=== PATIENT | female | born 1950 | race Caucasian/White ===

== ENCOUNTER 2018-08-11 00:08 | Emergency (ER) | payer MEDICARE, BC ==
[~2018-08-11] VITALS: Ht 167.6 cm; Wt 72.6 kg
== END 2018-08-11 01:04 | disposition home or self-care (01) ==
LOC: ER 00:08
DX: H66.011 Acute suppurative otitis media with spontaneous rupture of ear drum, right ear (principal)
CPT/HCPCS: 99282

== ENCOUNTER 2018-11-21 16:27 | Inpatient (IN) | payer MEDICARE, BC ==
[~2018-11-21] VITALS: Ht 165.1 cm; Wt 72.6 kg
[2018-11-21 18:12] LABS: BASOPHILS # (AUTO) 0.1 (0.0-0.1); BASOPHILS % 0.4 % (0.0-1.0); EOSINOPHILS # (AUTO) 0.1 (0.0-0.4); EOSINOPHILS % 0.5 % (0.0-6.0); HEMATOCRIT 47.7 % (34.2-44.1); HEMOGLOBIN 16.8 g/dL (12.0-16.0); LYMPHOCYTES # (AUTO) 1.1 (1.0-3.2); LYMPHOCYTES % 7.9 % (18.0-39.1); MEAN CORPUSCULAR HEMOGLOBIN 33.4 pg (28-32); MEAN CORPUSCULAR HGB CONC 35.2 g/dL (31-35); MEAN CORPUSCULAR VOLUME 94.8 fL (81-99); MONOCYTES # (AUTO) 0.6 (0.2-0.8); MONOCYTES % 4.1 % (4.4-11.3); NEUTROPHILS # (AUTO) 12.1 (2.1-6.9); NEUTROPHILS % 86.5 % (38.7-80.0); PLATELET COUNT 318 x10e3/uL (140-360); RED BLOOD COUNT 5.03 x10e6/uL (3.6-5.1); RED CELL DISTRIBUTION WIDTH 12.2 % (11.7-14.4)
[2018-11-21 18:19] LABS: MAGNESIUM 1.9 MG/DL (1.3-2.1)
[2018-11-21] MEDS: SODIUM CHLORIDE 0.9% 1000ML 1,000 ML IV SCH ×3 (18:23→21:50)
--- NOTE | 2018-11-21 18:25 | NUR ---
PATIENT VOMMITED 250ML CLEAR YELLOW EMESIS. CLEAN EMESIS BAG PROVIDED, WASHCLOTH PROVIDED. NO SIGNS OF ACUTE DISTRESS NOTED AT THIS TIME.
[2018-11-21 18:28] LABS: ALANINE AMINOTRANSFERASE 38 IU/L (0-55); ALBUMIN 4.7 g/dL (3.5-5.0); ALBUMIN/GLOBULIN RATIO 1.1 (0.8-2.0); ALKALINE PHOSPHATASE 95 IU/L (40-150); ANION GAP 20.8 mmol/L (8-16); BLOOD UREA NITROGEN 34 mg/dL (7-26); BUN/CREATININE RATIO 16 (6-25); CALCIUM 10.6 mg/dL (8.4-10.2); CARBON DIOXIDE 18 mmol/L (22-29); CHLORIDE 105 mmol/L (98-107); CREATININE, SERUM 2.11 mg/dL (0.57-1.11); EST GLOMERULAR FILTRATION RATE 23 ML/MIN (60-); GLUCOSE 203 mg/dL (74-118); POTASSIUM 4.8 mmol/L (3.5-5.1); SODIUM 139 mmol/L (136-145)
--- NOTE | 2018-11-21 18:45 | NUR ---
VERBAL REPORT GIVEN TO CLINT MURCIA.
[2018-11-21] MEDS ORDERED: DIATRIZOATE MEGL/DIATRIZOA SOD 30 ML BTL PO ONE (18:46)
[2018-11-21 19:17] LABS: BILIRUBIN,URINE NEGATIVE (NEGATIVE); CLARITY,URINE SL CLOUDY (CLEAR); COLOR,URINE YELLOW (YELLOW); KETONES,URINE NEGATIVE (NEGATIVE); LEUKOCYTE ESTERASE ,URINE TRACE (NEGATIVE); NITRITE,URINE NEGATIVE (NEGATIVE); PROTEIN,URINE DIPSTICK NEGATIVE (NEGATIVE); URINE UROBILINOGEN 0.2 mg/dL (0.2 - 1)
[2018-11-21 19:25] LABS: AMORPHOUS SEDIMENT,URINE MANY (FEW); BACTERIA,URINE MANY /HPF
[2018-11-21] MEDS ORDERED: SODIUM CHLORIDE 0.9% 1000ML 1,000 ML IV SCH (19:30)
[2018-11-21] MEDS ORDERED: ULTRAM 50MG50 MG PO (19:43)
[2018-11-21] MEDS ORDERED: ZOLPIDEM TARTRA10 MG PO (19:43)
[2018-11-21] MEDS ORDERED: GLIMEPIRIDE2 MG PO (19:43)
[2018-11-21] MEDS ORDERED: METFORMIN HCL500 M2 PO (19:43)
[2018-11-21] MEDS ORDERED: VITAMIN D32000 UNI1 PO (19:43)
[2018-11-21] MEDS ORDERED: PANTOPRAZOLE SO40 MG PO (19:43)
[2018-11-21] MEDS ORDERED: ACEBUTOLOL HCL200 MG PO (19:43)
[2018-11-21] MEDS ORDERED: PIOGLITAZONE HC45 MG PO (19:43)
[2018-11-21] MEDS ORDERED: VITAMIN C1000 M2 PO (19:43)
[2018-11-21] MEDS ORDERED: CYCLOBENZAPRINE10 MG PO (19:43)
[2018-11-21] MEDS ORDERED: AMLODIPINE BESYL5 MG PO (19:43)
[2018-11-21] MEDS ORDERED: MOBIC7.5 MG PO (19:43)
[2018-11-21] MEDS ORDERED: LEVOTHYROXINE50 MCG PO (19:43)
[2018-11-21] MEDS ORDERED: LOSARTAN-HCTZ1 EAC2 PO (19:43)
[2018-11-21] MEDS ORDERED: CRESTOR10 MG PO (19:43)
[2018-11-21] MEDS ORDERED: CYMBALTA30 MG PO (19:43)
[2018-11-21] MEDS ORDERED: FISH OIL 1,0001 EAC3 PO (19:43)
[2018-11-21] MEDS ORDERED: ONDANSETRON HCL INJ 2MG/ML 2ML 2 MG/ML VIAL IV STA (20:08)
--- NOTE | 2018-11-21 20:18 | Diagnostic Imaging Report ---
EXAMINATION: CT of the abdomen and pelvis without contrast. TECHNIQUE: Spiral CT images of the abdomen and pelvis were performed from the lung bases to the lesser trochanters. Coronal and sagittal reformatted images were obtained. Positive oral contrast was administered. COMPARISON: None CLINICAL HISTORY:Acute onset abdominal pain DISCUSSION: ABDOMEN/PELVIS: LOWER THORAX: Lung bases are clear. Few punctate coronary calcifications. HEPATOBILIARY: Mildly lobulated liver contour. No focal hepatic lesions. No intra or extrahepatic biliary ductal dilation. Nonspecific surgical clip within Morison's pouch. GALLBLADDER: There are cholecystectomy clips. SPLEEN: No splenomegaly. PANCREAS: No focal masses or ductal dilatation. ADRENALS: No adrenal nodules. KIDNEYS/URETERS: Oral and small kidneys with suspected focal scarring in the left inferior pole. No hydronephrosis, stones, or solid mass lesions. PELVIC ORGANS/BLADDER: Status post hysterectomy. Urinary bladder is collapsed which limits its evaluation. PERITONEUM/RETROPERITONEUM: No free air or fluid. Val mesentery, predominately about the proximal superior mesenteric artery, with scattered prominent mesenteric nodes throughout the abdomen. LYMPH NODES: See above. VESSELS: Grossly unremarkable. GI TRACT: No distention or wall thickening. The appendix is difficult to definitively identify but is likely anterior projecting off the cecum as annotated (series 2, image 53). Few sigmoid diverticuli without evidence of diverticulitis. BONES AND SOFT TISSUES: Midline vertical laparotomy scar. Degenerative changes of the lumbar spine. IMPRESSION: Val mesentery with scattered prominent mesenteric nodes throughout the abdomen; findings are non-specific and can be seen in the setting of infectious/inflammatory (i.e. panniculitis) versus more sinister etiologies (i.E. lymphoma). Recommend short-term follow-up exam to evaluate for resolution. Additional findings: Scarring in the left inferior renal pole, few sigmoid diverticuli without evidence of diverticulitis, slightly lobulated liver contour may represent early hepatic cirrhosis. Signed by: Darnell Means MD on 11/21/2018 8:14 PM
[2018-11-21] MEDS ORDERED: CYCLOBENZAPRINE HCL 10 MG TAB PO PRN (21:30)
[2018-11-21] MEDS ORDERED: DEXTROSE 50% SYRINGE 50 ML IV PRN (21:30)
[2018-11-21] MEDS ORDERED: ZOLPIDEM TARTRATE 10 MG TAB PO PRN (21:30)
[2018-11-21] MEDS ORDERED: ONDANSETRON HCL INJ 2MG/ML 2ML 2 MG/ML VIAL IV PRN (21:30)
[2018-11-21] MEDS ORDERED: NON-FORMULARY MEDICATION (Zolpidem Tartrate 10 MG) PO PRN (21:30)
[2018-11-21] MEDS ORDERED: TRAMADOL HCL 50 MG TAB PO PRN (21:30)
--- OUTSIDE RECORDS SUMMARY | 2018-11-21 22:07 | XMS REPORT ---
[facility] Address Unknown Phone Unavailable Care Team Providers Care Press Offbearer Name Role Phone Stefanie TURNER Unavailable Unavailable Problems This patient has no known problems. Allergies, Adverse Reactions, Alerts This patient has no known allergies or adverse reactions. Medications This patient has no known medications. Results Test Description Test Time Test Comments Text Results Atomic Results Result Comments CT ABDOMEN/PELVIS WO 2018-11-21 19:54:00 [place] [address] Patient Name: AFUA VELASQUEZ MR #: [id number] : 1950 Age/Sex: 68/F Req #: [id number] Adm Physician: Ordered by: SNEHAL TURNER MD Report #: [id number] Location: ER Room/Bed: Procedure: [id number] CT/CT ABDOMEN/PELVIS WO Exam Date: 11/21/18 Exam Time: 0 REPORT STATUS: Signed EXAMINATION: CT of the abdomen and pelvis without contrast. TECHNIQUE: Spiral CT images of the abdomen and pelvis were performed from the lung bases to the lesser trochanters. Coronal and sagittal reformatted images were obtained. Positive oral contrast was administered. COMPARISON: None CLINICAL HISTORY:Acute onset abdominal pain DISCUSSION: ABDOMEN/PELVIS: LOWER THORAX: Lung bases are clear. Few punctate coronary calcifications. HEPATOBILIARY: Mildly lobulated liver contour. No focal hepatic lesions. No intra or extrahepatic biliary ductal dilation. Nonspecific surgical clip within Morison's pouch. GALLBLADDER: There are cholecystectomy clips. SPLEEN: No splenomegaly. PANCREAS: No focal masses or ductal dilatation. ADRENALS: No adrenal nodules. KIDNEYS/URETERS: Oral and small kidneys with suspected focal scarring in the left inferior pole. No hydronephrosis, stones, or solid mass lesions. PELVIC ORGANS/BLADDER: Status post hysterectomy. Urinary bladder is collapsed which limits its evaluation. PERITONEUM/RETROPERITONEUM: No free air or fluid. Val mesentery, predominately about the proximal superior mesenteric artery, with scattered prominent mesenteric nodes throughout the abdomen. LYMPH NODES: See above. VESSELS: Grossly unremarkable. GI TRACT: No distention or wall thickening. The appendix is difficult to definitively i dentify but is likely anterior projecting off the cecum as annotated (series 2, image 53). Few sigmoid diverticuli without evidence of diverticulitis. BONES AND SOFT TISSUES: Midline vertical laparotomy scar. Degenerative changes of the lumbar spine. IMPRESSION: Val mesentery with scattered prominent mesenteric nodes throughout the abdomen; findings are non-specific and can be seen in the setting of infectious/inflammatory (i.e. panniculitis) versus more sinister etiologies (i.E. lymphoma). Recommend short-term follow- up exam to evaluate for resolution. Additional findings: Scarring in the left inferior renal pole, few sigmoid diverticuli without evidence of diverticulitis, slightly lobulated liver contour may represent early hepatic cirrhosis. Signed by: Carlo Cook MD on 11/21/2018 8:14 PM Dictated By: CARLO COOK MD 13 Transcribed By: INOCENCIO on 11/21/182013 COPY TO: SNHEAL TURNER MD
[2018-11-21 23:42] VITALS: BP 121/67
[2018-11-22] VITALS (8 sets, daily range): BP systolic 98–117; BP diastolic 55–87
[2018-11-22] MEDS: SODIUM CHLORIDE 0.9% 1000ML 1,000 ML IV SCH ×3 (03:31→20:44)
[2018-11-22] MEDS: LEVOTHYROXINE SODIUM 25 MCG TABLET PO SCH (06:00)
[2018-11-22] MEDS: PANTOPRAZOLE SOD 40 MG TABEC PO SCH (07:30)
[2018-11-22] MEDS: INSULIN REGULAR, HUMAN 100 UNIT/1 ML 3ML VIAL SQ SCH ×4 (07:30→20:40)
[2018-11-22 07:38] LABS: BASOPHILS % 0.4 % (0.0-1.0); EOSINOPHILS # (AUTO) 0.1 (0.0-0.4); EOSINOPHILS % 1.1 % (0.0-6.0); HEMATOCRIT 35.5 % (34.2-44.1); HEMOGLOBIN 11.9 g/dL (12.0-16.0); LYMPHOCYTES # (AUTO) 1.1 (1.0-3.2); LYMPHOCYTES % 24.1 % (18.0-39.1); MEAN CORPUSCULAR HGB CONC 33.5 g/dL (31-35); MEAN CORPUSCULAR VOLUME 98.3 fL (81-99); MONOCYTES # (AUTO) 0.2 (0.2-0.8); MONOCYTES % 4.4 % (4.4-11.3); NEUTROPHILS # (AUTO) 3.2 (2.1-6.9); NEUTROPHILS % 69.6 % (38.7-80.0); PLATELET COUNT 159 x10e3/uL (140-360); RED BLOOD COUNT 3.61 x10e6/uL (3.6-5.1); RED CELL DISTRIBUTION WIDTH 12.6 % (11.7-14.4)
[2018-11-22 08:01] LABS: ALBUMIN/GLOBULIN RATIO 1.2 (0.8-2.0); ANION GAP 13.1 mmol/L (8-16); CALCIUM 7.7 mg/dL (8.4-10.2); CREATININE, SERUM 1.45 mg/dL (0.57-1.11); POTASSIUM 4.1 mmol/L (3.5-5.1)
[2018-11-22] MEDS ORDERED: PIOGLITAZONE HCL 45 MG TAB PO SCH (09:00)
[2018-11-22] MEDS: DULOXETINE HCL 30 MG DELAYED RELEASE PO SCH ×2 (09:00→17:00)
[2018-11-22] MEDS ORDERED: NON-FORMULARY MEDICATION (Ascorbic Acid (Vitamin C) 1,000 MG) PO SCH (09:00)
[2018-11-22] MEDS: ASCORBIC ACID 500 MG TAB PO SCH (09:00)
[2018-11-22] MEDS: MELOXICAM 7.5 MG TAB PO SCH (09:00)
[2018-11-22] MEDS: AMLODIPINE BESYLATE 5 MG TAB PO SCH (09:00)
[2018-11-22] MEDS ORDERED: SIMVASTATIN 40 MG TAB PO SCH (09:00)
[2018-11-22] MEDS: CHOLECALCIFEROL 1,000 UNIT TAB PO SCH (09:00)
[2018-11-22] MEDS ORDERED: NON-FORMULARY MEDICATION (Cholecalciferol (Vitamin D3) (Vitamin D3) 2,000 INTLU) PO SCH (09:00)
[2018-11-22] MEDS ORDERED: LEVOTHYROXINE SODIUM 50 MCG TAB PO SCH (09:00)
[2018-11-22] MEDS: ACEBUTOLOL HCL 200 MG CAP PO SCH ×2 (09:00→17:00)
[2018-11-22] MEDS: PIOGLITAZONE HCL 15 MG TAB PO SCH (09:00)
[2018-11-22] MEDS ORDERED: ONDANSETRON HCL 4 MG ORAL DISINTEGRATING TAB PO PRN (10:30)
--- NOTE | 2018-11-22 16:05 | NUR ---
Visit made by the Spiritual Care Department Pastoral Visitor, Madeleine Farley. PV provided pastoral presence, prayer, hospitality, and supportive listening. Pastoral Visitor informed pt/family of the scope of Community Case Manager Services and availability. CHANO SALOMON Clinical Support Associate Spiritual Care Department O: [phone] Pager: [phone] ([phone] number calling from)
--- NOTE | 2018-11-22 17:32 | NUR ---
pt alert and asymptomatic, pt B/S 58, 1/2 amp of daniel
--- NOTE | 2018-11-22 17:38 | NUR ---
Pt B/S 58 at this time and is asymptomatic, pt given 1/2 amp of D50 iv , pt tolerated well. will cont to monitor.
--- NOTE | 2018-11-22 18:50 | NUR ---
Pt stool sample sent to lab.
--- NOTE | 2018-11-22 19:15 | NUR ---
RECEIVED REPORT FROM OFFGOING NURSE TABBY.WALKING ROUNDS MADE.PT RESTING IN BED WITH NO S/S OF DISTRESS.RESPIRATIONS EVEN/NON LABORED.PT REQUESTING SHOWER AT THIS TIME.NOTIFIED PT THAT SOON VITAL SIGNS ARE TAKEN WE WILL ASSIST PT TO SHOWER.NOTIFIED [facility] ABOUT PT REQUEST TO SHOWER.PT VERBALIZED UNDERSTANDING.BED IN LOWEST/LOCKED POSITION.CALL LIGHT WITHIN EASY REACH.
--- NOTE | 2018-11-22 19:40 | NUR ---
ASSISTED PT TO SHOWER AT THIS TIME WITH THE HELP OF MAYITO BREWER.
[2018-11-22] MEDS: SIMVASTATIN 20 MG TAB PO SCH (20:43)
[2018-11-23] VITALS (8 sets, daily range): BP systolic 120–152; BP diastolic 63–85
[2018-11-23] MEDS: SODIUM CHLORIDE 0.9% 1000ML 1,000 ML IV SCH ×3 (05:18→21:18)
[2018-11-23] MEDS: LEVOTHYROXINE SODIUM 25 MCG TABLET PO SCH (06:00)
--- NOTE | 2018-11-23 07:15 | NUR ---
REPORT GIVEN TO ONCOMING NURSE.WALKING ROUNDS MADE.PT RESTING IN BED WITH NO S/S OF DISTRESS.
[2018-11-23] MEDS: INSULIN REGULAR, HUMAN 100 UNIT/1 ML 3ML VIAL SQ SCH ×4 (07:30→21:00)
[2018-11-23] MEDS: PANTOPRAZOLE SOD 40 MG TABEC PO SCH (07:30)
[2018-11-23] MEDS: ACEBUTOLOL HCL 200 MG CAP PO SCH ×2 (07:36→16:28)
[2018-11-23] MEDS: DULOXETINE HCL 30 MG DELAYED RELEASE PO SCH ×2 (07:36→16:28)
[2018-11-23] MEDS: MELOXICAM 7.5 MG TAB PO SCH (07:36)
[2018-11-23] MEDS: AMLODIPINE BESYLATE 5 MG TAB PO SCH (07:36)
[2018-11-23] MEDS: PIOGLITAZONE HCL 15 MG TAB PO SCH (07:36)
[2018-11-23] MEDS: ASCORBIC ACID 500 MG TAB PO SCH (07:38)
[2018-11-23] MEDS: CHOLECALCIFEROL 1,000 UNIT TAB PO SCH (07:38)
--- NOTE | 2018-11-23 07:39 | NUR ---
The pt's spouse is here and reports that he has given the pt. all the meds she will need for the day and that her bedtime meds are labeled at bedside. The side rails are up times 3 and the pt. denies pain or discomfort.
--- NOTE | 2018-11-23 20:00 | NUR ---
Patient was instructed to have nothing by mouth after midnight. Expressed understanding.
[2018-11-23] MEDS: SIMVASTATIN 20 MG TAB PO SCH (20:50)
[2018-11-24] VITALS: BP 142/79
[2018-11-24] MEDS: LEVOTHYROXINE SODIUM 25 MCG TABLET PO SCH (05:02)
[2018-11-24 05:08] VITALS: BP 138/77
[2018-11-24] MEDS: SODIUM CHLORIDE 0.9% 1000ML 1,000 ML IV SCH (05:18)
[2018-11-24 05:44] LABS: BASOPHILS % 0.3 % (0.0-1.0); EOSINOPHILS # (AUTO) 0.1 (0.0-0.4); EOSINOPHILS % 1.3 % (0.0-6.0); HEMATOCRIT 32.8 % (34.2-44.1); HEMOGLOBIN 11.1 g/dL (12.0-16.0); LYMPHOCYTES # (AUTO) 1.3 (1.0-3.2); LYMPHOCYTES % 34.1 % (18.0-39.1); MEAN CORPUSCULAR HEMOGLOBIN 32.8 pg (28-32); MEAN CORPUSCULAR HGB CONC 33.8 g/dL (31-35); MONOCYTES # (AUTO) 0.3 (0.2-0.8); MONOCYTES % 8.3 % (4.4-11.3); NEUTROPHILS # (AUTO) 2.1 (2.1-6.9); NEUTROPHILS % 55.7 % (38.7-80.0); PLATELET COUNT 135 x10e3/uL (140-360); RED BLOOD COUNT 3.38 x10e6/uL (3.6-5.1); RED CELL DISTRIBUTION WIDTH 12.1 % (11.7-14.4)
[2018-11-24 06:00] LABS: ANION GAP 12.5 mmol/L (8-16); BLOOD UREA NITROGEN 12 mg/dL (7-26); BUN/CREATININE RATIO 15 (6-25); CALCIUM 8.4 mg/dL (8.4-10.2); CARBON DIOXIDE 20 mmol/L (22-29); CHLORIDE 113 mmol/L (98-107); EST GLOMERULAR FILTRATION RATE > 60 ML/MIN (60-); GLUCOSE 83 mg/dL (74-118); POTASSIUM 3.5 mmol/L (3.5-5.1); SODIUM 142 mmol/L (136-145)
[2018-11-24] MEDS: INSULIN REGULAR, HUMAN 100 UNIT/1 ML 3ML VIAL SQ SCH (07:30)
[2018-11-24] MEDS: PANTOPRAZOLE SOD 40 MG TABEC PO SCH (07:30)
--- NOTE | 2018-11-24 07:30 | NUR ---
The pt. is out of the room to radiology for Ct abd and pelvis. The pt's spouse is at the bedside.
[2018-11-24] MEDS: ACEBUTOLOL HCL 200 MG CAP PO SCH (08:11)
[2018-11-24] MEDS: MELOXICAM 7.5 MG TAB PO SCH (08:11)
[2018-11-24] MEDS: DULOXETINE HCL 30 MG DELAYED RELEASE PO SCH (08:11)
[2018-11-24] MEDS: PIOGLITAZONE HCL 15 MG TAB PO SCH (08:11)
[2018-11-24] MEDS: AMLODIPINE BESYLATE 5 MG TAB PO SCH (08:11)
[2018-11-24] MEDS: CHOLECALCIFEROL 1,000 UNIT TAB PO SCH (08:12)
[2018-11-24] MEDS: ASCORBIC ACID 500 MG TAB PO SCH (08:12)
--- NOTE | 2018-11-24 08:26 | Diagnostic Imaging Report ---
EXAMINATION: CT of the abdomen and pelvis with contrast COMPARISON: CT abdomen/pelvis 11/21/2018. CLINICAL HISTORY:Abdominal pain. TECHNIQUE: Spiral CT images of the abdomen and pelvis were performed from the lung bases to the lesser trochanters. Coronal and sagittal reformatted images were obtained. IV contrast was administered. IV CONTRAST: 100 cc of Isovue 370 RADIATION DOSE: Total DLP: 565.9 mGy*cm Dose modulation, iterative reconstruction, and/or weight based adjustment of the mA/kV was utilized to reduce the radiation dose to as low as reasonably achievable. DISCUSSION: LOWER THORAX: Interval development of trace right pleural effusion. Patchy bibasilar atelectasis. Scattered coronary atherosclerotic calcifications. HEPATOBILIARY: Mildly lobulated liver contour. Diffuse hepatic steatosis. No focal hepatic lesions. No biliary ductal dilatation. Status post cholecystectomy. Mild stranding at the cholecystectomy bed, likely postsurgical. Nonspecific surgical clip within Morison's pouch. SPLEEN: No splenomegaly. PANCREAS: No focal masses or ductal dilatation. ADRENALS: No adrenal nodules. KIDNEYS/URETERS: No hydronephrosis, stones, or solid mass lesions. Scarring in the left inferior pole. Subcentimeter lesion in the left kidney is too small to characterize, but likely represents a cyst. PELVIC ORGANS/BLADDER: Status post hysterectomy. The bladder appears unremarkable. PERITONEUM/RETROPERITONEUM: No free air or fluid. Mesenteric stranding, most pronounced adjacent to the superior mesenteric artery and in the right lower quadrant with scattered mildly enlarged mesenteric and pericecal lymph nodes, measuring up to 1 cm, for example on series 2, image 40. LYMPH NODES: As above. VESSELS: Replaced right hepatic artery. Scattered atherosclerotic calcifications. GI TRACT: No distention or wall thickening. The appendix is not clearly identified. Sigmoid diverticulosis without CT evidence of diverticulitis. BONES AND SOFT TISSUES: No acute osseous abnormality. No suspicious lytic or blastic lesions. IMPRESSION: Val mesentery with mild mesenteric lymphadenopathy, a nonspecific finding. Differential includes mesenteric panniculitis and lymphoma. Suggest follow-up CT in 3 months. Hepatic steatosis with possible early cirrhosis. Suggest correlation with labs. Interval development of trace right pleural effusion. Signed by: Dr. Felipa Liu MD on 11/24/2018 8:40 AM
[2018-11-24 08:28] VITALS: BP 165/79
[2018-11-24 08:30] VITALS: BP 165/79
[2018-11-24] MEDS ORDERED: IOPAMIDOL 370 MG/ML 200 ML INFUS..BTL INJ ONE ×2 (11:48→15:45)
[2018-11-24] MEDS ORDERED: SODIUM CHLORIDE 0.9% 50ML 0 ML ONE (11:48)
[2018-11-24 11:51] VITALS: BP 135/65
[2018-11-24] MEDS ORDERED: LEVAQUIN500 MG PO (11:57)
[2018-11-24] MEDS ORDERED: SODIUM CHLORIDE 0.9% 50ML 50 ML ONE (15:45)
--- NOTE | 2019-01-15 05:05 | Discharge Summary ---
CHIEF COMPLAINT: Abdominal pain. FINAL DIAGNOSES: Abdominal pain, resolved; nausea, vomiting, and diarrhea, resolved; diabetes type 2. DISPOSITION: Home. HOSPITAL COURSE: A 68-year-old female with known history of diabetes type 2, hyperlipidemia, and osteoarthritis, presents to the ER with generalized abdominal pain associated with nausea, vomiting, and diarrhea, but no fever or chills. Underwent review and evaluation in the emergency room. Studies were performed. CT scan of the abdomen was carried out. She was demonstrating diffuse tenderness of abdomen and she was admitted to the facility for care and evaluation regarding complaint of abdominal pain, acute gastroenteritis, rule out C difficile colitis, diabetes type 2. We will begin IV fluids. We will be checking stools for C difficile. Home medications will be continuing. She is on the Med-Surg floor. She was started on a clear liquid diet, still complaining of abdominal pain, but the nausea and vomiting have subsided. She was on IV fluids. She was receiving antibiotics. Her daily medications were continuing as well. She was placed on mild medication of tramadol. She is also continuing on her insulin coverage. Laboratory studies were being reviewed. She was beginning to feel better overall. Her care continued and her nausea and vomiting was resolving. Abdominal pain was resolving. Her diet was advanced. She was noted to be tolerating solid diet well. She is being cleared for discharge and she was stabilized. She was then able to be released on 11/24/2018 in good condition. IMAGING: Abdomen and pelvis CT shows radha mesentery with scattered prominent mesenteric nodes throughout the abdomen. Findings are nonspecific and can be seen in the setting of infectious/inflammatory process. Recommend followup study. Additional findings were few sigmoid diverticula without evidence of diverticulitis. Slightly lobulated liver contour may represent early hepatic cirrhosis. The pelvis CT was repeated 3 days later compared to the initial study. Findings continued to reveal radha mesentery with mild mesenteric lymphadenopathy and nonspecific finding. Differential includes mesenteric panniculitis and lymphoma. Suggest followup 3 months. Hepatic steatosis with possible early cirrhosis. Interval development of trace right pleural effusion. LABORATORY STUDIES: Begins with a CBC showing initial white cell count of 13,900, H and H were stable, platelets were stable. Followup white cell count shows a decline in the white cell count down to 3700, H and H declined as well, final study 11.1 and 32.8. Urinalysis showing many bacteria on the microscopic exam. Chemistries shows initial electrolytes to be stable. Kidney functions, BUN 34, creatinine 2.11, glucose 203. Followup chemistries continued to reveal stable electrolytes. Repeat BUN and creatinine of 37 and 1.45 respectively. Final glucose 193. Final electrolytes stable. Final kidney function stable. The patient was able to be discharged home in stable condition. She will be returning to primary care physician as directed within next 7-10 days. No equipments or supplies are necessary. No drains or Sandra was needed. Activity level as directed by myself. The patient will continue on acebutolol 200 mg p.o. b.i.d., amlodipine besylate 5 mg p.o. daily, vitamin C 1000 mg daily, vitamin D3 of 2000 unit capsule daily, cyclobenzaprine 10 mg daily, Cymbalta 60 mg p.o. b.i.d., glimepiride 4 mg p.o. b.i.d., Levaquin 500 mg p.o. daily, Levaquin sodium 25 mcg p.o. daily, losartan-hydrochlorothiazide 100 mg tablet one tablet p.o. daily, meloxicam 7.5 mg p.o. daily, metformin 500 mg p.o. b.i.d., omega-3 fatty acid 1000 mg softgel tablet two tablets p.o. HS, Protonix 40 mg daily, pioglitazone 15 mg p.o. daily, Crestor 10 mg to be taken half a tablet p.o. daily, tramadol 50 mg p.o. t.i.d., and zolpidem 10 mg p.o. h.s. p.r.n. for insomnia. The patient will be contacting PCP if she has recurrence of similar symptoms or any other questions or concerns that might develop. Dictated by PETER Galan Kartik Kendall MD CC/MODL /[id number]
== END 2018-11-24 12:27 | disposition home or self-care (01) | DRG 392 ==
LOC: ER 16:27 → ERHOLD 22:04 → MED/SURG2 22:55
DX: K52.9 Noninfective gastroenteritis and colitis, unspecified (principal); N17.9 Acute kidney failure, unspecified; J96.10 Chronic respiratory failure, unspecified whether with hypoxia or hypercapnia; E11.9 Type 2 diabetes mellitus without complications; Z79.4 Long term (current) use of insulin; E03.9 Hypothyroidism, unspecified; E86.0 Dehydration; Z99.81 Dependence on supplemental oxygen; Z93.0 Tracheostomy status
CPT/HCPCS: 36415; 74176; 74177; 80048; 80053; 81001; 82150; 82948; 83605; 83690; 83735; 84702; 85025; 87045; 93005; 96374; 99284; J2405; J7030; J7799; Q9967

== ENCOUNTER → 2019-03-22 | Outpatient (CLI) | payer MEDICARE, BC ==
[~2019-03-22] MED LIST: ACEBUTOLOL HCL200 MG PO; AMLODIPINE BESYL5 MG PO; CRESTOR10 MG PO; CYCLOBENZAPRINE10 MG PO; CYMBALTA30 MG PO; FISH OIL 1,0001 EAC3 PO; GLIMEPIRIDE2 MG PO; LEVAQUIN500 MG PO; LEVOTHYROXINE50 MCG PO; LOSARTAN-HCTZ1 EAC2 PO; METFORMIN HCL500 M2 PO; MOBIC7.5 MG PO; PANTOPRAZOLE SO40 MG PO; PIOGLITAZONE HC45 MG PO; ULTRAM 50MG50 MG PO; VITAMIN C1000 M2 PO; VITAMIN D32000 UNI1 PO; ZOLPIDEM TARTRA10 MG PO
[2019-03-22 09:57] LABS: CREATININE, SERUM 1.45 mg/dL (0.57-1.11)
--- NOTE | 2019-03-22 10:53 | Diagnostic Imaging Report ---
EXAM: CT Abdomen and Pelvis WITHOUT intravenous contrast INDICATION: Mesenteric adenopathy. COMPARISON: CT abdomen and pelvis of 11/24/2018 TECHNIQUE: Abdomen and pelvis were scanned utilizing a multidetector helical scanner from the lung base to the pubic symphysis without administration of IV contrast. Coronal and sagittal reformations were obtained. IV CONTRAST: None ORAL CONTRAST: None COMPLICATIONS: None RADIATION DOSE: Total DLP: 588.6 mGy*cm Dose modulation, iterative reconstruction, and/or weight based adjustment of the mA/kV was utilized to reduce the radiation dose to as low as reasonably achievable. FINDINGS: LOWER THORAX: Mild bibasilar dependent subsegmental atelectasis. Minimal scattered coronary artery atherosclerotic calcifications. HEPATOBILIARY: Hepatic steatosis. Mildly nodular liver surface contour. No focal hepatic lesions. Status post cholecystectomy. SPLEEN: No splenomegaly. PANCREAS: No focal masses or ductal dilatation. ADRENALS: Subcentimeter right adrenal nodule, likely an adenoma. KIDNEYS/URETERS: No hydronephrosis, stones, or solid mass lesions. PELVIC ORGANS/BLADDER: Status post hysterectomy. PERITONEUM / RETROPERITONEUM: No free air or fluid. LYMPH NODES: Interval improvement in prominence of multiple mesenteric lymph nodes and mesenteric mistiness. VESSELS: Scattered athetotic calcifications of the nonaneurysmal abdominal aorta and major branches. GI TRACT: Mild colonic diverticulosis. No CT evidence of diverticulitis. BONES AND SOFT TISSUES: No acute osseous injury. Mild degenerative changes of the lumbar spine, most notably at L4-5 and L5-S1. No suspicious lytic or blastic lesions. IMPRESSION: No acute findings in the abdomen or pelvis. Interval improvement in prominence of mesenteric lymph nodes and mesenteric mistiness, likely reflecting improvement in an infectious or inflammatory process rather than a lymphoproliferative process. Hepatic steatosis and mildly nodular liver surface contour possibly reflecting early cirrhosis. Signed by: Audie Burnham MD on 03/22/2019 10:50 AM
== END ==
LOC: CT 08:46
DX: R10.9 Unspecified abdominal pain (principal); K76.0 Fatty (change of) liver, not elsewhere classified
CPT/HCPCS: 36415; 74176; 82565; 84520